=== PATIENT | male | born 2000 | race African-American/Black ===

== ENCOUNTER 2023-03-20 08:06 | Emergency (ER) | payer SELFPAY ==
[~2023-03-20] VITALS: Ht 180.3 cm; Wt 113.0 kg
[2023-03-20 08:12] VITALS: BP 183/122; PULSE 103; RESP 20; TEMP 97.8; O2SAT 98
== END 2023-03-20 08:36 | disposition home or self-care (01) ==
LOC: ER 08:34
DX: U07.1 COVID-19 (principal)
CPT/HCPCS: 99282

== ENCOUNTER 2024-05-03 23:12 | Emergency (ER) | payer SELFPAY ==
[~2024-05-03] VITALS: Ht 180.3 cm; Wt 120.0 kg
[2024-05-03 23:20] VITALS: BP 135/78; TEMP 98.5; O2SAT 100
[2024-05-03 23:21] VITALS: PULSE 83; RESP 16; O2SAT 100
[2024-05-04] MEDS ORDERED: PETR85OI TP (00:42)
[2024-05-04] MEDS: OXYMETAZOLINE HCL NASAL SPRAY 15ML BOTHNSTRLS SCH (01:35)
== END 2024-05-04 01:36 | disposition home or self-care (01) ==
LOC: ER 23:12
DX: R04.0 Epistaxis (principal)
CPT/HCPCS: 99282; Z7610